=== PATIENT | female | born 1950 | race Native Hawaiian/Other Pacific Islander ===

== ENCOUNTER 2021-05-06 14:15 | Emergency (ER) | payer OTHER ==
[~2021-05-06] VITALS: Ht 167.6 cm; Wt 108.9 kg
[2021-05-06 15:56] VITALS: BP 145/76; TEMP 98.3
== END 2021-05-06 15:58 | disposition home or self-care (01) ==
LOC: ED 14:15
DX: J20.9 Acute bronchitis, unspecified (principal)
CPT/HCPCS: 99282

== ENCOUNTER 2022-08-18 08:34 | Emergency (ER) | payer OTHER ==
[~2022-08-18] VITALS: Ht 167.6 cm; Wt 113.4 kg
[2022-08-18 08:40] VITALS: TEMP 97.4
[2022-08-18 10:16] VITALS: BP 140/74
== END 2022-08-18 10:16 | disposition home or self-care (01) ==
LOC: ED 08:34
DX: T49.3X1A Poisoning by emollients, demulcents and protectants, accidental (unintentional), initial encounter (principal); R51.9 Headache, unspecified; F41.8 Other specified anxiety disorders; T20.46XA Corrosion of unspecified degree of forehead and cheek, initial encounter; T32.0 Corrosions involving less than 10% of body surface; X58.XXXA Exposure to other specified factors, initial encounter; Y92.89 Other specified places as the place of occurrence of the external cause
CPT/HCPCS: 99282

== ENCOUNTER 2022-12-03 09:49 | Outpatient (CLI) | payer OTHER | END 2022-12-03 19:13 | disposition home or self-care (01) | LOC: MAMMO 09:49 | PROVIDERS: ATTEND Nurse Practitioner Family | DX: Z12.31 Encounter for screening mammogram for malignant neoplasm of breast (principal); Z13.820 Encounter for screening for osteoporosis; N95.8 Other specified menopausal and perimenopausal disorders ==